=== PATIENT | female | born 1995 | race Two or more races ===

== ENCOUNTER 2024-08-19 14:54 | Emergency (ER) | payer OTHER ==
[~2024-08-19] VITALS: Ht 167.6 cm; Wt 127.0 kg
[2024-08-19 15:51] LABS: HEMATOCRIT 35.5 % (36.0-45.00); HEMOGLOBIN 11.3 g/dL (12.0-15.00); MEAN CELL VOLUME 74.9 fL (80.00-100.00); MEAN CORPUSCULAR HEMOGLOBIN 23.8 pg (27.00-32.0); MEAN CORPUSCULAR HGB CONC 31.8 g/dl (32.0-36.0); PLATELET COUNT 440 K/uL (150-450); RED BLOOD COUNT 4.74 M/uL (4.00-6.00)
[2024-08-19 16:31] LABS: URINE APPEARANCE Clear; URINE BILIRRUBIN Negative (NEGATIVE); URINE BLOOD Negative; URINE COLOR Yellow; URINE GLUCOSE Negative (NEGATIVE); URINE KETONE Trace (NEGATIVE); URINE LEUKOCYTE Negative; URINE NITRATE Negative; URINE PROTEIN Negative (NEGATIVE); URINE UROBILINOGEN 0.2 E.U./dl
[2024-08-19 16:35] LABS: URINE BACTERIA 176.2 uL (0.0-1933); URINE EPITHELIAL CELLS 8.2 uL (0.0-38.8); URINE RBC 34.3 uL (0.0-20.8); URINE WBC 4.9 uL (0.0-23.2)
== END 2024-08-19 20:05 ==
LOC: ER 14:55
PROVIDERS: General Practice
DX: O26.899 Other specified pregnancy related conditions, unspecified trimester (principal); Z3A.09 9 weeks gestation of pregnancy; R10.2 Pelvic and perineal pain

== ENCOUNTER 2024-09-07 13:06 | Outpatient (CLI) | payer OTHER | END 2024-09-07 13:08 | disposition home or self-care (01) | LOC: PRENATAL 13:06 | PROVIDERS: ATTEND Obstetrics & Gynecology Maternal & Fetal Medicine | DX: O36.80X0 Pregnancy with inconclusive fetal viability, not applicable or unspecified (principal); Z36.82 Encounter for antenatal screening for nuchal translucency; O34.219 Maternal care for unspecified type scar from previous cesarean delivery; O36.1999 Maternal care for other isoimmunization, unspecified trimester, other fetus; Z14.8 Genetic carrier of other disease; Z3A.11 11 weeks gestation of pregnancy ==

== ENCOUNTER 2024-11-11 11:22 | Outpatient (CLI) | payer OTHER | END 2024-11-11 11:23 | disposition home or self-care (01) | LOC: PRENATAL 11:22 | PROVIDERS: ATTEND Obstetrics & Gynecology Maternal & Fetal Medicine | DX: O44.00 Complete placenta previa NOS or without hemorrhage, unspecified trimester (principal); O34.219 Maternal care for unspecified type scar from previous cesarean delivery; O36.1999 Maternal care for other isoimmunization, unspecified trimester, other fetus; Z3A.20 20 weeks gestation of pregnancy ==

== ENCOUNTER → 2025-01-04 10:51 | Outpatient (CLI) | payer OTHER | END | disposition home or self-care (01) | LOC: PRENATAL 10:51 | PROVIDERS: ATTEND Obstetrics & Gynecology Maternal & Fetal Medicine | DX: O26.849 Uterine size-date discrepancy, unspecified trimester (principal); O34.219 Maternal care for unspecified type scar from previous cesarean delivery; O36.1999 Maternal care for other isoimmunization, unspecified trimester, other fetus; O36.60X0 Maternal care for excessive fetal growth, unspecified trimester, not applicable or unspecified; Z3A.30 30 weeks gestation of pregnancy ==

== ENCOUNTER 2025-02-15 10:02 | Outpatient (CLI) | payer OTHER | END 2025-02-15 10:03 | disposition home or self-care (01) | LOC: PRENATAL 10:02 | PROVIDERS: ATTEND Obstetrics & Gynecology Maternal & Fetal Medicine | DX: O26.849 Uterine size-date discrepancy, unspecified trimester (principal); O36.8130 Decreased fetal movements, third trimester, not applicable or unspecified; O34.219 Maternal care for unspecified type scar from previous cesarean delivery; O36.1999 Maternal care for other isoimmunization, unspecified trimester, other fetus; O36.60X0 Maternal care for excessive fetal growth, unspecified trimester, not applicable or unspecified; Z3A.36 36 weeks gestation of pregnancy ==

== ENCOUNTER 2025-02-26 23:43 | Outpatient (CLI) | payer OTHER ==
[~2025-02-26] VITALS: Ht 170.2 cm; Wt 126.1 kg
[2025-02-26 23:00] VITALS: BP 113/73
[2025-02-26] MEDS ORDERED: RINGERS SOLUTION,LACTATED 1,000 ML IV SCH (23:45)
[2025-02-26] MEDS ORDERED: PRENATA CHEWAB1 EACH PO (23:55)
[2025-02-27] MEDS ORDERED: CHILDREN'S ASPI81 MG PO (00:17)
[2025-02-27 02:24] LABS: URINE APPEARANCE Clear; URINE BILIRRUBIN Negative (NEGATIVE); URINE BLOOD Negative; URINE COLOR Yellow; URINE GLUCOSE Negative (NEGATIVE); URINE KETONE Negative (NEGATIVE); URINE LEUKOCYTE Negative; URINE NITRATE Negative; URINE PROTEIN Negative (NEGATIVE); URINE UROBILINOGEN 0.2 E.U./dl
[2025-02-27 02:27] LABS: BASO % 0.2 % (0.1-1.2); EOS # 0.13 (0.04-0.54); EOS % 1.1 % (0.7-7.0); LYMPH # 3.10 (1.18-3.74); LYMPH % 27.1 % (19.3-53.1); MEAN PLATELET VOLUME 10.10 fl (9.4-12.4); MONO # 0.95 (0.24-0.82); MONO % 8.3 % (4.7-12.5); NEUT # 7.19 (1.56-6.13); NEUT % 63.0 % (34.0-71.1); RED CELL DISTRIBUTION WIDTH 14.9 % (11.6-14.4)
[2025-02-27 02:29] LABS: URINE BACTERIA 118.7 uL (0.0-1933); URINE EPITHELIAL CELLS 9.9 uL (0.0-38.8); URINE RBC 3.5 uL (0.0-20.8); URINE WBC 7.8 uL (0.0-23.2)
[2025-02-27 02:31] LABS: URINE CAST 0.00 uL (0.0-1.40)
[2025-02-27 02:49] LABS: INR 0.94
[2025-02-27 07:27] VITALS: BP 117/76
[2025-02-27 12:00] VITALS: BP 107/72
[2025-02-27 12:59] VITALS: BP 107/72
== END 2025-02-27 14:25 | disposition home or self-care (01) ==
LOC: OBS/DEL 23:43
PROVIDERS: Obstetrics & Gynecology; ATTEND Obstetrics & Gynecology
DX: O36.8130 Decreased fetal movements, third trimester, not applicable or unspecified (principal); Z3A.35 35 weeks gestation of pregnancy

== ENCOUNTER 2025-03-10 09:22 | Inpatient (IN) | payer OTHER ==
[~2025-03-10] VITALS: Ht 170.2 cm; Wt 3.2 kg
[~2025-03-10 09:22] MED LIST: CHILDREN'S ASPI81 MG PO; PRENATA CHEWAB1 EACH PO
[2025-03-10 09:37] LABS: URINE APPEARANCE Clear; URINE BILIRRUBIN Negative (NEGATIVE); URINE BLOOD Negative; URINE COLOR Yellow; URINE GLUCOSE Negative (NEGATIVE); URINE KETONE Negative (NEGATIVE); URINE LEUKOCYTE Negative; URINE NITRATE Negative; URINE PROTEIN Negative (NEGATIVE); URINE UROBILINOGEN 0.2 E.U./dl
[2025-03-10 09:38] LABS: BASO % 0.3 % (0.1-1.2); EOS # 0.08 (0.04-0.54); EOS % 0.7 % (0.7-7.0); LYMPH # 2.81 (1.18-3.74); LYMPH % 26.2 % (19.3-53.1); MEAN PLATELET VOLUME 10.10 fl (9.4-12.4); MONO # 0.72 (0.24-0.82); MONO % 6.7 % (4.7-12.5); NEUT # 7.04 (1.56-6.13); NEUT % 65.7 % (34.0-71.1); RED CELL DISTRIBUTION WIDTH 15.6 % (11.6-14.4); URINE BACTERIA 300.0 uL (0.0-1933); URINE EPITHELIAL CELLS 26.8 uL (0.0-38.8); URINE RBC 6.0 uL (0.0-20.8); URINE WBC 11.3 uL (0.0-23.2)
[2025-03-10 09:57] LABS: URINE CAST 0.00 uL (0.0-1.40)
[2025-03-10 10:03] LABS: INR < 0.93
[2025-03-10 10:30] LABS: ALT/SGPT 23.0 U/L (12-78); AST/SGOT 15.0 U/L (15-37); BILIRUBIN TOTAL 0.2 mg/dL (0.3-1.2); BUN CREA RATIO 14.0 (7.0-25.0); CREATININE SERUM 0.63 mg/dL (0.55-1.02); GFR 112.52; GLOBULINA 4.2 G/DL (2.4-3.5); GLUCOSE FASTING 91.0 mg/dL (65-100); OSMOLALITY SERUM 276.0 MOSM/KG (275-295)
[2025-03-14 19:47] VITALS: BP 122/85
[2025-03-14] MEDS ORDERED: AMOX1TAB5 PO (20:05)
[2025-03-14] MEDS ORDERED: RINGERS SOLUTION,LACTATED 1,000 ML IV SCH (20:15)
[2025-03-14] MEDS ORDERED: OXYTOCIN 10 UNITS/ML VIAL ONE (21:28)
[2025-03-14] MEDS ORDERED: ERYTHROMYCIN BASE OPHT 1GM EACH TUBE OP ONE (21:28)
[2025-03-14] MEDS ORDERED: CEFAZOLIN SODIUM 1,000 MG VIAL IV ONE (21:45)
[2025-03-14] MEDS ORDERED: FAMOTIDINE/PF 20 MG/2 ML VIAL IV ONE (21:45)
[2025-03-14] MEDS ORDERED: KETOROLAC TROMETHAMINE 30 MG VIAL IV NR (23:45)
[2025-03-14] MEDS ORDERED: ONDANSETRON HCL 2 MG/ML VIAL IV PRN (23:45)
[2025-03-14] MEDS ORDERED: OXYTOCIN 1,000 ML IV SCH (23:45)
[2025-03-15] MEDS ORDERED: ACETAMINOPHEN 325 MG TABLET PO SCH
[2025-03-15] MEDS ORDERED: KETOROLAC TROMETHAMINE 60 MG VIAL IM SCH
[2025-03-15] MEDS ORDERED: OXYTOCIN 10 UNITS/ML VIAL ONE (00:43)
[2025-03-15] MEDS ORDERED: KETOROLAC TROMETHAMINE 30 MG VIAL IV ONE (00:55)
[2025-03-15 04:10] VITALS: BP 112/74
[2025-03-15 04:18] LABS: BASO % 0.2 % (0.1-1.2); EOS # 0.01 (0.04-0.54); EOS % 0.1 % (0.7-7.0); LYMPH # 2.02 (1.18-3.74); LYMPH % 11.5 % (19.3-53.1); MEAN PLATELET VOLUME 9.80 fl (9.4-12.4); MONO # 1.15 (0.24-0.82); MONO % 6.5 % (4.7-12.5); NEUT # 14.27 (1.56-6.13); NEUT % 81.3 % (34.0-71.1); RED CELL DISTRIBUTION WIDTH 16.4 % (11.6-14.4)
[2025-03-15] MEDS ORDERED: SIMETHICONE 125 MG CAPSULE PO SCH (04:55)
[2025-03-15] MEDS ORDERED: DOCUSATE SODIUM 100MG CAP PO SCH (04:56)
[2025-03-15 08:15] VITALS: BP 136/88
[2025-03-15] MEDS ORDERED: KETOROLAC TROMETHAMINE 60 MG VIAL IM ONE (08:51)
[2025-03-15 16:01] VITALS: BP 120/81
[2025-03-16 00:03] VITALS: BP 107/69
[2025-03-16 08:01] VITALS: BP 132/85
[2025-03-16] MEDS ORDERED: IRON FUM,PS/FOLIC ACID/VITC/B3 1 CAP CAPSULE PO SCH (09:00)
[2025-03-16 15:44] VITALS: BP 122/83
[2025-03-16] MEDS ORDERED: KETOROLAC TROMETHAMINE 30 MG VIAL IM NR (16:45)
[2025-03-17 00:56] VITALS: BP 123/76
[2025-03-17 08:47] VITALS: BP 125/82
== END 2025-03-17 12:23 | disposition home or self-care (01) | DRG 788 ==
LOC: OB/GYN 03-14 20:03 → LDR 03-14 20:03 → OB/GYN 03-15 00:07 → SURH 03-22 08:44
PROVIDERS: General Practice; ADMIT Obstetrics & Gynecology; ATTEND Obstetrics & Gynecology
PROC: 4A1HXCZ Monitoring of Products of Conception, Cardiac Rate, External Approach (ICD-10-PCS; 2025-03-14)
PROC: 10D00Z1 Extraction of Products of Conception, Low, Open Approach (ICD-10-PCS; principal; 2025-03-14 22:45)
DX: O34.211 Maternal care for low transverse scar from previous cesarean delivery (principal); O42.02 Full-term premature rupture of membranes, onset of labor within 24 hours of rupture; G47.33 Obstructive sleep apnea (adult) (pediatric); O99.214 Obesity complicating childbirth; E66.813 Obesity, class 3; O75.89 Other specified complications of labor and delivery; O99.824 Streptococcus B carrier state complicating childbirth; Z3A.38 38 weeks gestation of pregnancy; Z37.0 Single live birth